=== PATIENT | female | born 1940 | race Caucasian/White ===

== ENCOUNTER 2019-06-15 15:08 | Outpatient (CLI) | payer MEDICARE, SELFPAY ==
--- NOTE | 2019-06-15 15:21 | MM_ITS ---
WS: [id number] SCREENING DIGITAL MAMMOGRAM WITH CAD HISTORY: SCREENING COMPARISON: 04/13/2018 and 03/04/2017 Bilateral CC and MLO views submitted. Computer aided detection analyzed. Breast composition: There are scattered areas of fibroglandular density. Lobulated asymmetry measuring 3 mm in the anterior lateral LEFT breast. Seen on the CC projection onl y. Fibroglandular densities posterior to the nipple as seen on the prior studies are stable. Benign c alcifications. LEFT breast: Spot compression views (CC ). True ML. Ultrasound to follow if abnormality persists. MM/[place] [id number] IMPRESSION: BI-RADS: 0-Incomplete: Need additional imaging evaluation FOLLOW UP: Need Additional Imaging
== END 2019-06-15 15:09 | disposition home or self-care (01) ==
LOC: RADSHAW 15:16
PROVIDERS: Family Provider Internal Medicine; PCP Internal Medicine; Visit Provider Internal Medicine
DX: Z12.31 Encounter for screening mammogram for malignant neoplasm of breast (principal)
CPT/HCPCS: 77067

== ENCOUNTER 2019-07-07 10:36 | Outpatient (CLI) | payer MEDICARE, SELFPAY ==
--- NOTE | 2019-07-07 11:00 | MM_ITS ---
WS: [id number] LEFT DIGITAL MAMMOGRAPHY WITH CAD CLINICAL INFORMATION: follow up images COMPARISON: June 15, 2019 TECHNIQUE: 2 views of the left breast were obtained. FINDINGS: Fatty-replaced left breast. Again seen is the 3 mm asymmetry anterior left breast. This appears simil ar in appearance dating back to 2013. This persists on the spot compression views and ultrasound is p ending. ULTRASOUND BREAST LEFT TECHNIQUE: Ultrasound left breast focused area of concern. CLINICAL INFORMATION: follow up images COMPARISON: None. FINDINGS: Ultrasound breast left. Dense breast tissue deep to the left area left. Comparison right areola. No e vidence of a well-circumscribed mass or lesion target for biopsy. No suspicious lesions. MM/[place] [id number] IMPRESSION: BI-RADS: 2-Benign FOLLOW UP: 1 Year Follow-up Recommend return to annual screening mammography.
--- NOTE | 2019-07-07 12:45 | US_ITS ---
WS: [id number] LEFT DIGITAL MAMMOGRAPHY WITH CAD CLINICAL INFORMATION: follow up images COMPARISON: June 15, 2019 TECHNIQUE: 2 views of the left breast were obtained. FINDINGS: Fatty-replaced left breast. Again seen is the 3 mm asymmetry anterior left breast. This appears simil ar in appearance dating back to 2013. This persists on the spot compression views and ultrasound is p ending. ULTRASOUND BREAST LEFT TECHNIQUE: Ultrasound left breast focused area of concern. CLINICAL INFORMATION: follow up images COMPARISON: None. FINDINGS: Ultrasound breast left. Dense breast tissue deep to the left area left. Comparison right areola. No e vidence of a well-circumscribed mass or lesion target for biopsy. No suspicious lesions. US/US breast LT limited* [id number] IMPRESSION: BI-RADS: 2-Benign FOLLOW UP: 1 Year Follow-up Recommend return to annual screening mammography.
== END 2019-07-07 10:37 | disposition home or self-care (01) ==
LOC: RADSHAW 10:45
PROVIDERS: Family Provider Internal Medicine; PCP Internal Medicine; Visit Provider Internal Medicine
DX: N64.89 Other specified disorders of breast (principal); R92.8 Other abnormal and inconclusive findings on diagnostic imaging of breast
CPT/HCPCS: 76642; 77065

== ENCOUNTER 2020-11-27 12:53 | Outpatient (CLI) | payer MEDICARE, SELFPAY ==
--- NOTE | 2020-11-27 13:04 | MM_ITS ---
WS: [id number] BILATERAL DIGITAL SCREENING MAMMOGRAPHY WITH CAD CLINICAL INFORMATION: SCREENING HISTORY: Screening mammogram. No current complaints. COMPARISON: June 29, 2019 TECHNIQUE: Bilateral CC and MLO views. FINDINGS: Scattered fibroglandular densities bilaterally. No suspicious focal mass, asymmetry, calcifications, or architectural distortion. No evidence of malignancy. Incidental punctate and lucent centered calci fications. Secretory calcifications. MM/[place] [id number] IMPRESSION: BI-RADS: 2-Benign FOLLOW UP: 1 Year Follow-up Recommend return to annual screening mammography.
== END 2020-11-27 12:54 | disposition home or self-care (01) ==
LOC: RADSHAW 12:56
PROVIDERS: PCP Internal Medicine; Visit Provider Internal Medicine
DX: Z12.31 Encounter for screening mammogram for malignant neoplasm of breast (principal)
CPT/HCPCS: 77067

== ENCOUNTER → 2021-09-22 15:47 | Outpatient (BNVA) | payer MEDICARE, SELFPAY | PROVIDERS: PCP Internal Medicine; Visit Provider Internal Medicine | DX: I48.92 Unspecified atrial flutter (principal); I10 Essential (primary) hypertension; E78.5 Hyperlipidemia, unspecified; I35.1 Nonrheumatic aortic (valve) insufficiency | CPT/HCPCS: 99214 ==

== ENCOUNTER → 2021-10-09 11:38 | Outpatient (BNVA) | payer MEDICARE, SELFPAY | PROVIDERS: PCP Internal Medicine; Visit Provider Internal Medicine | DX: R20.0 Anesthesia of skin (principal); D64.9 Anemia, unspecified; M79.642 Pain in left hand; I10 Essential (primary) hypertension; E78.5 Hyperlipidemia, unspecified; I35.1 Nonrheumatic aortic (valve) insufficiency; I48.91 Unspecified atrial fibrillation; I48.92 Unspecified atrial flutter | CPT/HCPCS: 80053; 82607; 82746; 83550; 84443; 85025 ==

== ENCOUNTER → 2022-01-06 13:07 | Outpatient (BNVA) | payer MEDICARE, SELFPAY | PROVIDERS: PCP Internal Medicine; Referring Provider Internal Medicine; Visit Provider Specialist | DX: G56.03 Carpal tunnel syndrome, bilateral upper limbs (principal); G56.22 Lesion of ulnar nerve, left upper limb | CPT/HCPCS: 95910; 95913 ==

== ENCOUNTER → 2022-01-29 09:53 | Outpatient (BNVA) | payer MEDICARE, SELFPAY | PROVIDERS: PCP Internal Medicine; Referring Provider Internal Medicine; Visit Provider Specialist | DX: G56.02 Carpal tunnel syndrome, left upper limb (principal) | CPT/HCPCS: 95860; 99202 ==

== ENCOUNTER → 2022-03-13 10:43 | Outpatient (BNVA) | payer MEDICARE, SELFPAY | PROVIDERS: PCP Internal Medicine; Visit Provider Internal Medicine | DX: Z45.010 Encounter for checking and testing of cardiac pacemaker pulse generator [battery] (principal) | CPT/HCPCS: 93280 ==

== ENCOUNTER → 2022-04-07 13:16 | Outpatient (BNVA) | payer MEDICARE, SELFPAY | PROVIDERS: PCP Internal Medicine; Visit Provider Internal Medicine | DX: I48.91 Unspecified atrial fibrillation (principal); I48.92 Unspecified atrial flutter; I10 Essential (primary) hypertension; E78.5 Hyperlipidemia, unspecified; I35.1 Nonrheumatic aortic (valve) insufficiency; Z95.0 Presence of cardiac pacemaker | CPT/HCPCS: 99213 ==

== ENCOUNTER → 2022-10-07 11:13 | Outpatient (BNVA) | payer MEDICARE, SELFPAY | PROVIDERS: PCP Internal Medicine; Referring Provider Internal Medicine; Visit Provider Specialist | DX: G56.03 Carpal tunnel syndrome, bilateral upper limbs (principal); I48.91 Unspecified atrial fibrillation; I48.92 Unspecified atrial flutter; I10 Essential (primary) hypertension; E78.5 Hyperlipidemia, unspecified; I35.1 Nonrheumatic aortic (valve) insufficiency | CPT/HCPCS: 73110; 99204; 99213 ==

== ENCOUNTER 2022-12-02 10:21 | Outpatient (CLI) | payer MEDICARE, SELFPAY ==
--- NOTE | 2022-12-02 10:32 | MM_ITS ---
WS: [id number] BILATERAL SCREENING DIGITAL TOMOSYNTHESIS MAMMOGRAM WITH CAD HISTORY: SCREENING COMPARISON: 11/27/2020, 06/15/2019 Bilateral CC and MLO views with tomosynthesis and synthetic mammography submitted. Computer aided det ection analyzed. Breast composition: There are scattered areas of fibroglandular density. No suspicious masses, microc alcifications or architectural distortion. Bilateral calcifications. MM/[place] [id number] IMPRESSION: BI-RADS: 2-Benign FOLLOW UP: 1 Year Follow-up
== END 2022-12-02 10:22 | disposition home or self-care (01) ==
LOC: RAD 10:25 → MOBLMAM 10:30
PROVIDERS: PCP Internal Medicine; Visit Provider Internal Medicine
DX: Z12.31 Encounter for screening mammogram for malignant neoplasm of breast (principal)
CPT/HCPCS: 77063; 77067

== ENCOUNTER 2023-01-27 15:12 | Outpatient (CLI) | payer MEDICARE, SELFPAY | END 2023-01-27 15:13 | disposition home or self-care (01) | LOC: SPT 15:12 | PROVIDERS: PCP Internal Medicine; Visit Provider Specialist | DX: Z46.89 Encounter for fitting and adjustment of other specified devices (principal); G56.03 Carpal tunnel syndrome, bilateral upper limbs | CPT/HCPCS: 97760; 99214; L3908 ==

== ENCOUNTER → 2023-02-02 15:41 | Outpatient (BNVA) | payer MEDICARE, SELFPAY | PROVIDERS: PCP Internal Medicine; Visit Provider Family Medicine | DX: Z01.818 Encounter for other preprocedural examination (principal) | CPT/HCPCS: 80053; 85025 ==

== ENCOUNTER 2023-02-05 05:29 | Day surgery (SDC) | payer MEDICARE, SELFPAY ==
[2023-02-04 12:43] VITALS: BMI 25.1
[2023-02-05 05:59] VITALS: BP 171/97; PULSE 86; RESP 18; TEMP 36.8; O2SAT 95
[2023-02-05] MEDS: sodium chloride 0.9% 1,000 ML 30 ML IV (06:17)
[2023-02-05] MEDS: acetaminophen 1,000 MG/100 ML PIGGYBACK 400 MG IV (06:18)
[2023-02-05] MEDS: CELEcoxib 200 mg Capsule 400 MG PO (06:19)
--- NOTE | 2023-02-05 06:59 | P.HPUD_ITS ---
Surgery/Procedure H&P Update DATE OF PROCEDURE: February 05, 2023 DATE H&P PERFORMED: 02/02/23 H&P UPDATE INFORMATION: I have reviewed H&P completed within last 30 days, I have examined patient prior to procedure, No changes to prior documentation and H&P is in [facility] EMR on date indicated PLANNED PROCEDURE: Operation Date: 02/05/23 07:00 Proposed Procedures p LEFT CARPAL TUNNEL RELEASE [id number],G56.00(Left) - Arabella Archuleta MD Related Problem List Diagnoses (1) Carpal tunnel syndrome, left:
[2023-02-05] MEDS: ceFAZolin 2,000 MG in sodium chloride 0.9% (plus) 50 ML 100 MG IV (07:03)
[2023-02-05] MEDS: BUPivacaine 0.5% INJ 30 mL INJECTION (07:30)
[2023-02-05 08:02] VITALS: BP 140/85; PULSE 64; RESP 16; TEMP 36.1; O2SAT 94
[2023-02-05 08:07] VITALS: BP 146/86; PULSE 61; RESP 16; O2SAT 93
[2023-02-05 08:12] VITALS: BP 163/79; PULSE 62; RESP 16; O2SAT 94
--- NOTE | 2023-02-05 08:20 | P.OP_ITS ---
Operative Report Date of procedure: February 05, 2023 Pre-op diagnosis: Left carpal tunnel syndrome Post-op diagnosis: Left carpal tunnel syndrome Post-op findings: Significant compression across the carpal canal with narrowing of the median nerve and purplish discoloration Procedure done: Left carpal tunnel release Surgeon: Arabella Archuleta MD Anesthesia: MAC (With local, ASA 3) Estimated blood loss (mL): 2 Tourniquet time (min): 17 (At 250 mmHg) IV fluids (mL): 500 Urine output (mL): 0 (No Patel) Complications: None Findings: Consistent with carpal tunnel syndrome with narrowing of the median nerve and purplish discoloration. Very tight transverse carpal ligament. Condition: stable Disposition: PACU (Then return to same-day surgery for discharge to home) Brief History: This is an established 82 year old female patient here for left carpal tunnel release. Previously, the patient was educated on surgical intervention. She states that she has been wearing braces at night. She states that this has been improving her pain. Although the braces helped her pain, she still had significant issues in activities of daily living. She was seen in the office, consents were signed, and questions were answered. She wished to proceed with carpal tunnel release on the left. She does have diagnosis of bilateral carpal tunnel syndrome. Procedure: The patient was brought to the operating theater. Patient had MAC anesthesia with local supplementation, ASA 3, which was well-tolerated. The tourniquet was elevated to 250 mmHg for a total tourniquet time of 17 minutes. The patient was also given Ancef 2 g preoperatively. The arm was then prepped and draped with DuraPrep in usual fashion with the arm draped free. A surgical pause was performed. At the time, the surgical pause, we confirmed the site and side of surgery. We also confirmed the patient's identity, appropriate and timely administration of preoperative antibiotics and preoperative surgical markings. An incision was then made along the thenar crease. The incision crossed the wrist joint in a curvilinear fashion. Dissection continued through skin and soft tissues using a scalpel. The palmaris longus was identified along with the transverse carpal ligament. Each of these was released carefully to avoid injury to the median nerve. We were able to dissect gently into the carpal canal which was noted to be quite tight with significant compression across the median nerve. The nerve was visualized and was an hourglass shape with purplish di scoloration. The canal was subsequently palpated to assure there was no bony encroachment upon the canal. There was a quite thickened fibrous tissue within the canal, and this was opened longitudinally as well. The canal was then palpated distally and proximally to assure that my small finger was passed easily without impingement. Finding this to be so, attention was directed to closure. The wound was irrigated with ropivacaine plain. It was then closed with 3-0 nylon in an interrupted mattress fashion. Sterile dressing was then placed consisting of Dermabond, OpSite, fluffed fluffs, soft roll, and an Zan wrap. The tourniquet was released after 17 minutes. There were no complications. There were no specimens. The procedure was well tolerated. Plan is the patient will be discharged home. Related Problem List Diagnoses (1) Carpal tunnel syndrome, left:
[2023-02-05 08:34] VITALS: BP 143/84; PULSE 71; RESP 16; O2SAT 92
--- NOTE | 2023-02-05 08:34 | ANES.PREANE2 ---
Pre-Anesthetic Assessment Height/Weight: Height 1.65 m Weight 68.492 kg Temp Pulse Resp BP Pulse Ox O2 Del Method 97 F L 62 16 163/79 94 Room Air 02/05/23 08:02 02/05/23 08:12 02/05/23 08:12 02/05/23 08:12 02/05/23 08:12 02/05/23 08:12 Operation Date: 02/05/23 07:00 Proposed Procedures p LEFT CARPAL TUNNEL RELEASE [id number],G56.00(Left) - Arabella Archuleta MD Familial anesthetic complications: none Was Beta Vern taken within 24 hours: N/A Was Clonidine taken within 24 hours: N/A Last intake: Intake Last Liquid Date 02/04/23 Last Liquid Time 21:00 Last Solid Date 02/04/23 Last Solid Time 17:00 Social No alcohol and No tobacco Exam alert, oriented x 3, clear to auscultation bilaterally and regular rate & rhythm Airway Submandibular: within normal limits Cervical ROM: within normal limits Mallampati: Class II Dentition: full CV/HEM Atrial Fibrillation, Hypertension and Murmur (AUI) Pacemaker GI Gastroesophageal Reflux Disease Metabolic Hyperlipidemia Neuropsych Neuropathy Anesthetic Plan ASA status: 3 Anesthesia: Choice Medications/Allergies Home Medications Medication Instructions Recorded Confirmed Last Taken Type aspirin 81 mg tablet,delayed 81 mg PO DAILY 07/19/19 02/04/23 02/01/23 History release hydrochlorothiazide 25 mg tablet 25 mg PO QAM 90 days #90 tabs 05/21/21 02/04/23 02/05/23 Rx lisinopril 20 mg tablet 20 mg PO QDAY 90 days #90 tabs 05/21/21 02/04/23 02/04/23 Rx cholecalciferol (vitamin D3) 25 25 mcg PO DAILY 11/12/21 02/04/23 02/04/23 History mcg (1,000 unit) capsule multivitamin 1 tab PO DAILY 11/12/21 02/04/23 02/04/23 History pantoprazole 40 mg tablet,delayed 40 mg PO DAILY #90 tabs 02/17/22 02/04/23 02/04/23 Rx release (Protonix) cock up splint #1 ea 01/27/23 01/27/23 Unknown Rx hydrocodone 5 mg-acetaminophen 325 1 tab PO Q4H PRN pain 7 days #20 02/05/23 Unknown Rx mg tablet tabs Allergies Allergy/AdvReac Type Severity Reaction Status Date / Time No Known Allergies Allergy Verified 02/04/23 12:42 Current Medications Generic Name Dose Route Start Last Admin Trade Name Kassandra PRN Reason Stop Dose Admin Sodium Chloride 1,000 mls @ 30 mls/hr 02/05/23 06:00 02/05/23 06:17 Sodium Chloride 0.9% IV 02/06/23 05:59 30 mls/hr .Q24H CAROL Administration PFSH Anesthesia Medical History Aortic insufficiency Atrial fibrillation and flutter Essential (primary) hypertension GERD (gastroesophageal reflux disease) History of sinus bradycardia Hyperlipidemia Mitral regurgitation Pacemaker Family History Other Cancer Hypertension Social History Smoking and tobacco status: never smoked Alcohol intake: current Alcohol intake frequency: few times a week Household members: spouse Housing: House Data Anesthesia Cardiac Studies: No Data to Display
[2023-02-05] MEDS: HYDROcodone-acetaminophen 5-325 mg Tablet 1 TAB PO (08:43)
[2023-02-05 09:00] VITALS: BP 152/77; PULSE 65; RESP 18; O2SAT 100
--- NOTE | 2023-02-05 13:31 | ANE.PACU2 ---
Inpatient post-anesthesia follow up: Airway intact: Yes Vital signs: Temperature 97 F Pulse Rate 65 Respiratory Rate 18 Blood Pressure 152/77 Pulse Oximetry 100 Oxygen Delivery Me thod Room Air Oxygen Flow Rate Fraction of Inspir ed Oxygen Hydration adequate: Yes Nausea and vomiting: No Pain level: 2 Mental status: Baseline
== END 2023-02-05 09:05 | disposition home or self-care (01) ==
PROVIDERS: PCP Internal Medicine; Visit Provider Specialist
PROC: (CPT 64721; principal; 2023-02-05 07:00)
DX: G56.02 Carpal tunnel syndrome, left upper limb (principal)
CPT/HCPCS: 64721; J0131; J0690; J2405; J2704; J3010; J3490; J7030

== ENCOUNTER → 2023-02-24 14:25 | Outpatient (BNVA) | payer MEDICARE, SELFPAY | PROVIDERS: PCP Internal Medicine; Visit Provider Specialist | DX: G56.02 Carpal tunnel syndrome, left upper limb (principal) | CPT/HCPCS: 99024 ==

== ENCOUNTER → 2023-04-16 10:25 | Outpatient (BNVA) | payer MEDICARE, SELFPAY | PROVIDERS: PCP Internal Medicine; Visit Provider Internal Medicine Cardiovascular Disease | DX: E78.5 Hyperlipidemia, unspecified (principal); I10 Essential (primary) hypertension; I48.91 Unspecified atrial fibrillation; I48.92 Unspecified atrial flutter; I35.1 Nonrheumatic aortic (valve) insufficiency; Z95.0 Presence of cardiac pacemaker | CPT/HCPCS: 99213 ==

== ENCOUNTER 2023-06-07 06:00 | Outpatient (RCR) | payer MEDICARE, SELFPAY | END 2023-06-09 23:59 | disposition home or self-care (01) | LOC: APT 06:00 | PROVIDERS: PCP Internal Medicine; Visit Provider Internal Medicine | DX: G56.02 Carpal tunnel syndrome, left upper limb (principal); G56.01 Carpal tunnel syndrome, right upper limb | CPT/HCPCS: 97110; 97161 ==

== ENCOUNTER 2023-06-10 06:00 | Outpatient (RCR) | payer MEDICARE, SELFPAY | END 2023-07-08 23:59 | disposition home or self-care (01) | LOC: APT 06:00 | PROVIDERS: PCP Internal Medicine; Visit Provider Internal Medicine | DX: G56.02 Carpal tunnel syndrome, left upper limb (principal); G56.01 Carpal tunnel syndrome, right upper limb | CPT/HCPCS: 97110; 97530 ==

== ENCOUNTER → 2023-10-15 10:28 | Outpatient (BNVA) | payer MEDICARE, SELFPAY | PROVIDERS: PCP Internal Medicine; Visit Provider Internal Medicine Cardiovascular Disease | DX: E78.5 Hyperlipidemia, unspecified (principal); I10 Essential (primary) hypertension; I48.91 Unspecified atrial fibrillation; I48.92 Unspecified atrial flutter; I35.1 Nonrheumatic aortic (valve) insufficiency; Z95.0 Presence of cardiac pacemaker | CPT/HCPCS: 99213 ==

== ENCOUNTER → 2024-04-21 09:56 | Outpatient (BNVA) | payer MEDICARE, SELFPAY | PROVIDERS: PCP Internal Medicine; Visit Provider Internal Medicine Cardiovascular Disease | DX: I48.91 Unspecified atrial fibrillation (principal); I35.1 Nonrheumatic aortic (valve) insufficiency; I48.92 Unspecified atrial flutter; Z95.0 Presence of cardiac pacemaker | CPT/HCPCS: 99213 ==

== ENCOUNTER → 2024-08-22 10:25 | Outpatient (BNVA) | payer MEDICARE, SELFPAY | PROVIDERS: PCP Internal Medicine; Visit Provider Nurse Practitioner Family | DX: L82.1 Other seborrheic keratosis (principal); B35.1 Tinea unguium; L57.8 Other skin changes due to chronic exposure to nonionizing radiation; X32.XXXA Exposure to sunlight, initial encounter; L81.4 Other melanin hyperpigmentation; L73.8 Other specified follicular disorders; R22.32 Localized swelling, mass and lump, left upper limb; L57.0 Actinic keratosis | CPT/HCPCS: 11104; 17000; 99203 ==

== ENCOUNTER → 2024-09-01 08:57 | Outpatient (BNVA) | payer MEDICARE, SELFPAY | PROVIDERS: PCP Internal Medicine; Visit Provider Nurse Practitioner Family | DX: L72.0 Epidermal cyst (principal); L57.8 Other skin changes due to chronic exposure to nonionizing radiation; X32.XXXA Exposure to sunlight, initial encounter; L81.4 Other melanin hyperpigmentation; L73.8 Other specified follicular disorders; L82.1 Other seborrheic keratosis | CPT/HCPCS: 99213 ==

== ENCOUNTER → 2024-10-04 12:51 | Outpatient (BNVA) | payer MEDICARE, SELFPAY | PROVIDERS: PCP Internal Medicine; Visit Provider Podiatrist Foot & Ankle Surgery | DX: S99.921A Unspecified injury of right foot, initial encounter (principal); X58.XXXA Exposure to other specified factors, initial encounter | CPT/HCPCS: 73630 ==

== ENCOUNTER → 2024-10-17 14:36 | Outpatient (BNVA) | payer MEDICARE, SELFPAY | PROVIDERS: PCP Internal Medicine; Visit Provider Podiatrist Foot & Ankle Surgery | DX: S92.421D Displaced fracture of distal phalanx of right great toe, subsequent encounter for fracture with routine healing (principal); X58.XXXD Exposure to other specified factors, subsequent encounter | CPT/HCPCS: 73630; 99213 ==

== ENCOUNTER → 2024-10-20 09:55 | Outpatient (BNVA) | payer MEDICARE, SELFPAY | PROVIDERS: PCP Internal Medicine; Visit Provider Nurse Practitioner Family | DX: I48.91 Unspecified atrial fibrillation (principal); Z79.82 Long term (current) use of aspirin; I48.92 Unspecified atrial flutter; I35.1 Nonrheumatic aortic (valve) insufficiency; Z95.0 Presence of cardiac pacemaker | CPT/HCPCS: 99213 ==

== ENCOUNTER → 2024-10-25 10:45 | Outpatient (BNVA) | payer MEDICARE, SELFPAY | PROVIDERS: PCP Internal Medicine; Visit Provider Internal Medicine | DX: Z45.018 Encounter for adjustment and management of other part of cardiac pacemaker (principal) | CPT/HCPCS: 93296 ==

== ENCOUNTER → 2025-03-06 13:52 | Outpatient (BNVA) | payer MEDICARE, SELFPAY | PROVIDERS: PCP Internal Medicine; Visit Provider Nurse Practitioner Family | DX: L72.0 Epidermal cyst (principal); L82.1 Other seborrheic keratosis; L57.8 Other skin changes due to chronic exposure to nonionizing radiation; X32.XXXA Exposure to sunlight, initial encounter; L81.4 Other melanin hyperpigmentation; L73.8 Other specified follicular disorders; L57.0 Actinic keratosis | CPT/HCPCS: 17000; 99213 ==

== ENCOUNTER → 2025-04-25 10:38 | Outpatient (BNVA) | payer MEDICARE, SELFPAY | PROVIDERS: PCP Internal Medicine; Visit Provider Internal Medicine Cardiovascular Disease | DX: Z45.018 Encounter for adjustment and management of other part of cardiac pacemaker (principal) | CPT/HCPCS: 93296 ==